=== PATIENT | female | born 2000 | race Hispanic/Latino ===

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

== ENCOUNTER 2022-02-12 16:05 | Emergency (ER) | payer BC ==
[2022-02-12 18:11] LABS: Bacteria/HPF Rare-Few HPF (None Seen); Bilirubin Negative (Negative); Blood, Urine Trace (Negative); Clarity Clear (Clear); Glucose, Urine (Dipstick) Normal (Negative); Ketone, Urine Negative (Negative); Leukocyte Negative Leu/uL (Negative); Nitrite Negative (Negative); Protein, Urine (Dipstick) Negative (Neg-Trace); RBC/HPF 0-3 HPF (0-3); Specific Gravity, Urine 1.018 (1.002-1.036); Squamous Epithelial 0-3 HPF (0-3); pH, Urine 6.5 (5.0-9.0)
[2022-02-12 18:12] LABS: Pregnancy Test - Urine (BHCG) Negative (Negative); Pregu Control Background? CLEAR/WHITE (CLR/WHITE); Pregu Control Bar Appear? YES (CONTROL BAR); Specific Gravity 1.018 (1.002-1.036)
[2022-02-12] MEDS ORDERED: Ibuprofen 800 MG TAB ONE (19:26)
[2022-02-12] MEDS ORDERED: Acetaminophen 500 MG TAB ONE (19:26)
[2022-02-12] MEDS ORDERED: Xylocaine 1% w/ Epi 1:100K 10 ML VIAL ONE (19:27)
== END 2022-02-12 20:51 | disposition home or self-care (01) ==
LOC: ERS 16:05
DX: N75.1 Abscess of Bartholin's gland (principal)
CPT/HCPCS: 56420; 81003; 81015; 81025; 87086